=== PATIENT | male | born 1955 | race Caucasian/White ===

== ENCOUNTER 2019-12-30 20:19 | Inpatient (IN) | payer BC, OTHER ==
[~2019-12-30] VITALS: Ht 182.9 cm; Wt 83.0 kg
[2019-12-30] MEDS ORDERED: MORPHINE SULFATE 4 MG/ML, 1ML ONE ×2 (20:43→21:21)
[2019-12-30] MEDS ORDERED: ONDANSETRON 2MG/ML, 2ML ONE (20:43)
[2019-12-30] MEDS: MORPHINE SULFATE 4 MG/ML, 1ML IVPush PRN ×2 (20:45→21:24)
[2019-12-30 20:49] LABS: BASOPHILS # (AUTO) 0.04 x10^3/uL (0-0.1); BASOPHILS % (AUTO) 0 % (0-1); EOSINOPHILS % (AUTO) 1 % (1-7); LYMPHOCYTES # (AUTO) 1.92 x10^3/uL (1-3.4); LYMPHOCYTES % (AUTO) 17 % (22-44); MD NO; MEAN CORPUSCULAR HEMOGLOBIN 33.7 pg (27.5-34.5); MEAN CORPUSCULAR VOLUME 99.3 fL (81-97); MEAN PLATELET VOLUME 7.7 fL (7.4-10.4); MONOCYTES # (AUTO) 0.85 x10^3/uL (0.2-0.8); MONOCYTES % (AUTO) 8 % (2-9); NEUTROPHILS # (AUTO) 8.38 x10^3/uL (1.8-6.8); NEUTROPHILS % (AUTO) 74 % (42-75); PLATELET COUNT 249 x10^3/uL (130-400); RED BLOOD COUNT 4.73 x10^6/uL (4.38-5.82); RED CELL DISTRIBUTION WIDTH 14.1 % (9.4-14.8)
--- NOTE | 2019-12-30 20:57 | NUR ---
PT IN US AFTER BEING MEDICATED FOR PAIN. PT C/O 06/30 ABD PAIN, N/V THAT STARTED THIS AFTER NOON. PT DENIES DIARRHEA. DISTAL PEDAL PULSES NORMAL. PT HAS HX OF "GALLBLADDER ATTACKS." PT DRINKS MARGARITAS EVERYNIGHT AND ATTEMPTED TO HAVE ONE AT ABOUT 1800 TONIGHT.
[2019-12-30] MEDS ORDERED: ONDANSETRON 2MG/ML, 2ML IVPush ONE (21:00)
[2019-12-30 21:01] LABS: ALANINE AMINOTRANSFERASE 31 U/L (12-78); ALBUMIN 3.8 g/dL (3.4-5.0); ANION GAP 8 mmol/L (5-15); CHLORIDE 105 mmol/L (98-107)
[2019-12-30 21:06] LABS: ALKALINE PHOSPHATASE 70 U/L (45-117); BILIRUBIN,TOTAL 0.5 mg/dL (0.2-1.0); CREATININE 0.98 mg/dL (0.7-1.3); TOTAL PROTEIN 7.5 g/dL (6.4-8.2); TROPONIN I < 0.015 ng/mL (0.000-0.045)
--- NOTE | 2019-12-30 21:31 | NUR ---
PT BACK FROM CT. PT REMEDICATED FOR PAIN. UA COLLECTED.
[2019-12-30] MEDS ORDERED: OMNIPAQUE 350 MG/ML, 100ML BOTTLE ONE (21:52)
[2019-12-30 21:53] LABS: MICROSCOPIC NOT IND
--- NOTE | 2019-12-30 21:55 | NUR ---
REPORT TO YESICA Thompson RN.
[2019-12-30 21:57] LABS: CULTURE INDICATED? NO
[2019-12-30] MEDS ORDERED: SODIUM CHLORIDE 0.9% 1,000ML IVBOLUS ONE (22:00)
[2019-12-30] MEDS ORDERED: HYDROmorphone 1 MG/ML, 1ML INJ ONE ×2 (22:04→23:29)
[2019-12-30] MEDS: HYDROmorphone 2 MG/ML, 1ML IVPush PRN ×2 (22:06→23:32)
--- NOTE | 2019-12-30 22:08 | NUR ---
PT RESTING ON GURSHARON WITH FAMILY AT BS FOR SUPPORT. PT REPORTS 10/10 PAIN, MEDICATED PER NOV. ERP AT BS TO DISCUSS POC WITH PT. MONITORING IN PLACE, CALL LIGHT WITHIN REACH, ALL SAFETY MEASURES IN PLACE.
--- NOTE | 2019-12-30 22:52 | NUR ---
PT RESTING ON GURNEY WITH EYES CLOSED, AWOKE TO VOICE, DENIES ANY FURTHER NEEDS AT THIS TIME. FAMILY AT BS FOR SUPPORT. MONITORING IN PLACE, CALL LIGHT WITHIN REACH.
[2019-12-30] MEDS ORDERED: SODIUM CHLORIDE 0.9% 1,000 ML IV ONE (23:16)
[2019-12-30] MEDS ORDERED: ONDANSETRON 2MG/ML, 2ML IVPush PRN (23:30)
[2019-12-30] MEDS ORDERED: HYDROmorphone 1 MG/ML, 1ML INJ IVPush PRN (23:30)
[2019-12-31 00:15] VITALS: BP 135/85
[2019-12-31] MEDS ORDERED: morphine SULFATE 10 MG/ML, 1ML IVPush PRN (00:30)
[2019-12-31] MEDS ORDERED: POTASSIUM CHLORIDE 40 MEQ in SODIUM CHLORIDE 0.9% 500 ML IV ONE (00:30)
[2019-12-31] MEDS ORDERED: hydrALAzine 20 MG/ML, 1ML IVPush PRN (00:30)
[2019-12-31] MEDS ORDERED: PROMETHAZINE 25 MG/ML, 1ML IM PRN (00:30)
[2019-12-31] MEDS ORDERED: ONDANSETRON 2MG/ML, 2ML IVPush PRN ×2 (00:30→10:00)
[2019-12-31] MEDS ORDERED: ACETAMINOPHEN 325 MG TABLET PO PRN (00:30)
[2019-12-31] MEDS: LACTATED RINGERS 1,000 ML IV SCH ×3 (05:16→23:48)
[2019-12-31 05:24] LABS: ANION GAP 4 mmol/L (5-15); CALCIUM 7.6 mg/dL (8.5-10.1); CHLORIDE 110 mmol/L (98-107)
[2019-12-31 05:28] LABS: ALANINE AMINOTRANSFERASE 26 U/L (12-78); ALKALINE PHOSPHATASE 59 U/L (45-117); BILIRUBIN,TOTAL 0.6 mg/dL (0.2-1.0); CREATININE 0.73 mg/dL (0.7-1.3); TOTAL PROTEIN 6.1 g/dL (6.4-8.2)
[2019-12-31 05:37] LABS: BASOPHILS # (AUTO) 0.03 x10^3/uL (0-0.1); BASOPHILS % (AUTO) 0 % (0-1); EOSINOPHILS % (AUTO) 0 % (1-7); LYMPHOCYTES # (AUTO) 1.05 x10^3/uL (1-3.4); LYMPHOCYTES % (AUTO) 12 % (22-44); MD NO; MEAN CORPUSCULAR HEMOGLOBIN 33.8 pg (27.5-34.5); MEAN CORPUSCULAR HGB CONC 33.9 g/dL (33.2-36.2); MEAN CORPUSCULAR VOLUME 99.8 fL (81-97); MONOCYTES # (AUTO) 0.58 x10^3/uL (0.2-0.8); MONOCYTES % (AUTO) 7 % (2-9); NEUTROPHILS # (AUTO) 7.26 x10^3/uL (1.8-6.8); NEUTROPHILS % (AUTO) 81 % (42-75); PLATELET COUNT 222 x10^3/uL (130-400); RED BLOOD COUNT 4.28 x10^6/uL (4.38-5.82); RED CELL DISTRIBUTION WIDTH 14.4 % (9.4-14.8)
[2019-12-31 07:15] VITALS: BP 120/67
[2019-12-31] MEDS ORDERED: MIDAZOLAM 1 MG/ML, 2ML ONE (08:35)
[2019-12-31] MEDS ORDERED: SUCCINYLCHOLINE 20 MG/ML, 10ML ONE (08:35)
[2019-12-31] MEDS ORDERED: CEFAZOLIN 1,000 MG ONE (08:35)
[2019-12-31] MEDS ORDERED: DEXAMETHASONE 4 MG/ML, 1ML ONE (08:35)
[2019-12-31] MEDS ORDERED: PROPOFOL 10 MG/ML, 20ML ONE (08:35)
[2019-12-31] MEDS ORDERED: ONDANSETRON 2MG/ML, 2ML ONE (08:35)
[2019-12-31] MEDS ORDERED: ROCURONIUM 10MG/ML,5ML ONE (08:35)
[2019-12-31] MEDS ORDERED: BUPIVACAINE/PF-EPI 0.5% 1:200K ONE (08:35)
[2019-12-31] MEDS ORDERED: FENTANYL PF 250 MCG/5ML ONE (08:35)
[2019-12-31] MEDS ORDERED: BUPIVACAINE/PF-EPI 0.5% 1:200K INFIL ONE (09:41)
[2019-12-31] MEDS ORDERED: OXYcodone 5 MG/5 ML ORAL.SOL UDC PO PRN (10:00)
[2019-12-31] MEDS ORDERED: LABETALOL 5MG/ML, 20ML IV PRN (10:00)
[2019-12-31] MEDS ORDERED: DIAZEPAM 5 MG/ML, 2ML IV PRN ×2 (10:00)
[2019-12-31] MEDS ORDERED: KETOROLAC 30 MG/1 ML IV PRN (10:00)
[2019-12-31] MEDS ORDERED: HYDROmorphone 1 MG/ML, 1ML INJ IV PRN (10:00)
[2019-12-31] MEDS ORDERED: FENTANYL PF 100 MCG/2ML IV PRN (10:00)
[2019-12-31] MEDS ORDERED: METOCLOPRAMIDE 5 MG/ML, 2ML IV PRN (10:00)
[2019-12-31] MEDS ORDERED: hydrALAzine 20 MG/ML, 1ML IV PRN (10:00)
[2019-12-31] MEDS ORDERED: PROMETHAZINE 25 MG/ML, 1ML IV PRN (10:00)
[2019-12-31] MEDS ORDERED: MEPERIDINE/PF 25MG/0.5ML IVPush PRN (10:00)
[2019-12-31] MEDS ORDERED: ALBUTEROL SULFATE 2.5 MG/3 ML NPPB PRN (10:00)
[2019-12-31] MEDS ORDERED: FENTANYL PF 100 MCG/2ML ONE (11:04)
[2019-12-31] MEDS ORDERED: OXYcodone 5 MG/5 ML ORAL.SOL UDC ONE (11:05)
[2019-12-31 12:01] VITALS: BP 135/73
[2019-12-31] MEDS ORDERED: OXYC-307 PO (12:23)
[2019-12-31] MEDS: OXYcodone/APAP 5/325MG TABLET PO PRN ×2 (15:00→15:39)
[2019-12-31 18:48] VITALS: BP 120/69
[2020-01-01 00:32] VITALS: BP 115/66
[2020-01-01 03:30] VITALS: BP 131/71
[2020-01-01] MEDS: OXYcodone/APAP 5/325MG TABLET PO PRN ×3 (04:17→12:29)
[2020-01-01 04:49] LABS: BASOPHILS # (AUTO) 0.03 x10^3/uL (0-0.1); BASOPHILS % (AUTO) 0 % (0-1); EOSINOPHILS # (AUTO) 0.02 x10^3/uL (0-0.4); EOSINOPHILS % (AUTO) 0 % (1-7); LYMPHOCYTES # (AUTO) 1.38 x10^3/uL (1-3.4); LYMPHOCYTES % (AUTO) 13 % (22-44); MD NO; MEAN CORPUSCULAR HEMOGLOBIN 33.8 pg (27.5-34.5); MEAN CORPUSCULAR HGB CONC 33.4 g/dL (33.2-36.2); MEAN CORPUSCULAR VOLUME 101.1 fL (81-97); MEAN PLATELET VOLUME 8.3 fL (7.4-10.4); MONOCYTES # (AUTO) 1.08 x10^3/uL (0.2-0.8); MONOCYTES % (AUTO) 11 % (2-9); NEUTROPHILS # (AUTO) 7.82 x10^3/uL (1.8-6.8); NEUTROPHILS % (AUTO) 76 % (42-75); PLATELET COUNT 205 x10^3/uL (130-400); RED BLOOD COUNT 4.14 x10^6/uL (4.38-5.82); RED CELL DISTRIBUTION WIDTH 14.5 % (9.4-14.8)
[2020-01-01 04:52] LABS: ALBUMIN 2.6 g/dL (3.4-5.0); ANION GAP 3 mmol/L (5-15); CALCIUM 7.6 mg/dL (8.5-10.1); CHLORIDE 106 mmol/L (98-107)
[2020-01-01 04:57] LABS: ALANINE AMINOTRANSFERASE 85 U/L (12-78); ALKALINE PHOSPHATASE 56 U/L (45-117); BILIRUBIN,TOTAL 0.6 mg/dL (0.2-1.0); TOTAL PROTEIN 5.7 g/dL (6.4-8.2)
[2020-01-01 06:57] VITALS: BP 141/74
[2020-01-01] MEDS ORDERED: AMPICILLIN/SULBACTAM 3 GM in SODIUM CHLORIDE 0.9% 100 ML IV SCH (08:30)
[2020-01-01] MEDS ORDERED: SENNA/DOCUSATE TABLET PO SCH (09:00)
[2020-01-01] MEDS ORDERED: POLYETHYLENE GLYCOL 17 GM PACKET PO SCH (09:00)
[2020-01-01 12:45] VITALS: BP 128/71
[2020-01-01] MEDS ORDERED: AMOX1TAB64 PO (13:44)
== END 2020-01-01 13:55 | disposition home or self-care (01) | DRG 418 ==
LOC: ED 21:53 → EDIP 23:25 → INTOOBSV 23:25 → 3N 12-31 00:15 → 4NE 12-31 11:40 → OBSVTOIN 01-01 10:38
PROVIDERS: ADMIT Family Medicine; ATTEND Internal Medicine Infectious Disease
PROC: 0FT44ZZ Resection of Gallbladder, Percutaneous Endoscopic Approach (ICD-10-PCS; principal; 2020-01-01)
DX: K80.10 Calculus of gallbladder with chronic cholecystitis without obstruction (principal); J98.11 Atelectasis; E87.6 Hypokalemia; K52.9 Noninfective gastroenteritis and colitis, unspecified; R09.02 Hypoxemia
CPT/HCPCS: 36415; 74177; 76700; 80053; 81003; 83690; 84484; 85025; 88304; 93005; G0378; J0295; J0690; J1100; J1170; J2250; J2405; J2704; J3010; J3480; Q9967; J0330; J2270; J7030; J7040; J7120